=== PATIENT | male | born 1980 | race Caucasian/White ===

== ENCOUNTER → 2023-01-24 10:24 | Outpatient (CLI) | payer OTHER, SELFPAY ==
--- NOTE | ~2023-01-24 | XR_ITS ---
XR foot RT min 3V DATE: 01/24/2023 11:21 INDICATION: Chronic right heel pain TECHNIQUE: 4 views COMPARISON: None FINDINGS: There is prominent calcification at the distal Achilles tendon, measuring up to approximate ly 2 mm maximal AP dimension and 5 mm vertical dimension, suggesting distal Achilles calcific tendini tis. No fracture or dislocation, periosteal reaction or bone destruction of the right foot is detected. No erosive changes. IMPRESSION: Distal Achilles tendon calcification, suggesting calcific tendinitis Reviewed, dictated and finalized at location A. IMPRESSION: Distal Achilles tendon calcification, suggesting calcific tendiniti s
== END ==
PROVIDERS: PCP Nurse Practitioner Family; Visit Provider Nurse Practitioner Family
DX: M65.871 Other synovitis and tenosynovitis, right ankle and foot (principal)
CPT/HCPCS: 73630

== ENCOUNTER → 2023-01-28 08:09 | Outpatient (CLI) | payer OTHER, SELFPAY ==
--- NOTE | ~2023-01-28 | MR_ITS ---
EXAMINATION: MR knee RT wo con DATE: 01/28/2023 08:54 INDICATION: Medial right knee pain. TECHNIQUE: Magnetic resonance imaging (MRI) of the right knee was performed without intravenous contr ast. Sequences included axial PD-weighted FS FSE, coronal PD-weighted FSE and PD-weighted FS FSE, sag ittal PD-weighted FSE, and sagittal T2-weighted FS FSE. COMPARISON: None. FINDINGS: Medial compartment: There is an undersurface horizontal tear of posterior horn of medial meniscus. There is a subchondral insufficiency fracture of medial femoral condyle involving the medial articular surface with low sig nal fracture line and edema-like marrow signal intensity. There is cartilage surface irregularity of tibial condyle and femoral condyle. There is mild subchondral edema-like marrow signal intensity of p osterior aspect of femoral condyle and medial aspect of tibial condyle. Lateral compartment: The lateral meniscus is normal. Lateral compartment cartilage is normal. Patellofemoral compartment: Patellar cartilage is normal. Trochlear cartilage is normal. Ligaments and tendons: The anterior and posterior cruciate ligaments are normal. There is edema around medial collateral lig ament, consistent with mild sprain (grade 1). Lateral collateral ligament complex is normal. The gibson llar tendon is normal. Fluid: There is a small knee joint effusion. There is mild superficial infrapatellar bursitis. IMPRESSION: 1. Subchondral insufficiency fracture of medial femoral condyle. 2. Mild medial compartment chondrosis. 3. Tear of medial meniscus. 4. Small knee joint effusion. 5. Mild sprain of medial collateral ligament (grade 1). Reviewed, dictated and finalized at location E.
== END ==
PROVIDERS: PCP Nurse Practitioner Family; Visit Provider Nurse Practitioner Family
DX: M94.261 Chondromalacia, right knee (principal); M25.461 Effusion, right knee; S83.411A Sprain of medial collateral ligament of right knee, initial encounter; S83.241A Other tear of medial meniscus, current injury, right knee, initial encounter; S72.431A Displaced fracture of medial condyle of right femur, initial encounter for closed fracture
CPT/HCPCS: 73721